=== PATIENT | female | born 2000 | race Caucasian/White ===

== ENCOUNTER → 2023-10-06 12:21 | Outpatient (CLI) | payer OTHER, SELFPAY ==
[2023-10-06 13:40] LABS: HCG Quantitative /Beta subunit 1824.1 mIU/mL
== END ==
PROVIDERS: PCP Registered Nurse Diabetes Educator; Referring Provider Physician Assistant; Visit Provider Physician Assistant
DX: Z34.90 Encounter for supervision of normal pregnancy, unspecified, unspecified trimester (principal)
CPT/HCPCS: 84702

== ENCOUNTER → 2023-11-02 11:16 | Outpatient (CLI) | payer OTHER, SELFPAY ==
[2023-11-02 14:50] LABS: Urine N gonorrhoeae NOT DETECTED
[2023-11-02 16:08] LABS: Urine Chlamydia NOT DETECTED
== END ==
PROVIDERS: PCP Registered Nurse Diabetes Educator; Visit Provider Obstetrics & Gynecology
DX: Z11.3 Encounter for screening for infections with a predominantly sexual mode of transmission (principal); Z34.01 Encounter for supervision of normal first pregnancy, first trimester; Z3A.08 8 weeks gestation of pregnancy
CPT/HCPCS: 87491; 87591

== ENCOUNTER → 2023-11-18 15:44 | Outpatient (CLI) | payer OTHER, SELFPAY ==
[2023-11-18 16:29] LABS: Add Manual Diff / Slide Review NO; Basophils Absolute Auto 100 /uL (0-100); Basophils Percent Auto 0.8 % (0-2); Eosinophils Absolute Auto 200 /uL (0-450); Hematocrit 38.2 % (36-46); Hemoglobin 13.4 g/dL (12.0-16.0); Lymphocytes Absolute Auto 1800 /uL (1100-4500); Lymphocytes Percent Auto 20.7 % (25-40); Mean Corpuscular Hemoglobin 30.6 PG (26-34); Mean Corpuscular Volume 87.4 fL (80-100); Monocytes Absolute Auto 300 /uL (0-900); Monocytes Percent Auto 3.7 % (3-14); Neutrophils Absolute Auto 6200 /uL (1500-7000); Neutrophils Percent Auto 72.8 % (50-75); Platelet Count 232 X10^3/uL (150-400); Red Blood Cell Count 4.37 X10^6/uL (4.0-5.2); Red Cell Distribution Width 13.7 % (11.6-14.8); White Blood Cell Count 8.5 X10^3/uL (4.5-11.0)
[2023-11-18 17:08] LABS: Natera Collection Specimen Collected
[2023-11-18 19:40] LABS: Hepatitis B Surface Antigen NEGATIVE s/c (NEGATIVE); Rubella Antibody IgG 96.2 IU/mL (>15)
[2023-11-18 19:55] LABS: HIV 1 & 2 Ab/Ag 4th Gen Combo NEGATIVE (NEGATIVE); Hep C Virus Ab w/Reflex Quant NEGATIVE s/c (NEGATIVE)
[2023-11-22 07:22] LABS: RPR Screen Non Reactive (Non Reactive); Varicella IgG Antibody 516 index (Immune >165)
== END ==
PROVIDERS: PCP Registered Nurse Diabetes Educator; Referring Provider Obstetrics & Gynecology; Visit Provider Obstetrics & Gynecology
DX: Z34.01 Encounter for supervision of normal first pregnancy, first trimester (principal); Z3A.10 10 weeks gestation of pregnancy
CPT/HCPCS: 36415; 80055; 86787; 86803; 86850; 86900; 86901; 87086; 87389

== ENCOUNTER → 2023-12-28 13:37 | Outpatient (CLI) | payer OTHER, SELFPAY ==
[2024-01-02 11:11] LABS: Gest Age on Col Date 16.7 weeks (.); Insulin Dep Diabetes No (.); OSBR Risk 1IN 10000 (.); Results Report (.); Test Results *Screen Negative* (.)
== END ==
PROVIDERS: PCP Registered Nurse Diabetes Educator; Referring Provider Specialist; Visit Provider Specialist
DX: Z34.02 Encounter for supervision of normal first pregnancy, second trimester (principal); Z3A.16 16 weeks gestation of pregnancy
CPT/HCPCS: 36415; 82105

== ENCOUNTER → 2024-01-18 14:43 | Outpatient (CLI) | payer OTHER, SELFPAY ==
--- NOTE | 2024-01-18 14:43 | DI.US.S_ITS ---
PROCEDURE: US OB >= 14 WEEKS FETUS INDICATIONS: 20 week anatomy scan OUTSIDE/PRIOR DATING DATA: Last menstrual period (LMP): 09/02/2023. LMP-based estimated date of delivery (DAMIAN): 06/08/2024. First dating scan (date and location): 11/02/2023. Estimated date of delivery (DAMIAN) from first dating scan: 06/09/2024. TECHNIQUE: Real-time scanning was performed of the fetus, with image documentation and biometric measurements. COMPARISON: 11/30/2023 FINDINGS: General: A single living intrauterine gestation is present. Presentation: Vertex Placenta: Placental position is posterior , without previa. Amniotic fluid index: 18.6 cm, normal range is 5-24 cm. Single deepest vertical pocket is 5.1 cm. heart rate: 162 beats per minute. Maternal cervical canal: 4.1 cm long. Normal lower limit is 2.5 cm. biometrics: Biparietal diameter: 4.6 centimeters, 20 weeks Head circumference: 17.1 centimeters, 19 weeks and 5 days Abdominal circumference: 14.8 centimeters, 20 weeks Femur length: 3.4 centimeters, 20 weeks and 3 days Clinically estimated gestational age: 19 weeks and 5 days Composite gestational age from present scan: 20 weeks Estimated weight and percentile: 338 grams, 73 percent Anatomic survey: Neuro: Ventricles are non-dilated at less than 10 mm. Cisterna magna is normal at 3-11 mm. Cerebellum is normal in size and morphology. Nuchal skin fold: Normal at less than 6 mm between 14-21 weeks gestational age. Face: Facial profile was not well seen. Nose lips within normal limits Spine: No evidence for spina bifida. Heart: 4-chambered heart is present, with normal ventricular outflow tracts. Diaphragm: Diaphragm is intact. Stomach: Left-sided stomach is present. Kidneys: No hydronephrosis. Normal is less than 5 mm in 2nd trimester, less than 7 mm in 3rd trimester. Cord: 3-vessel cord has orthotopic insertion. Bladder: Normal in size. Extremities: All 4 extremities identified. IMPRESSION: Living intrauterine gestation at 19 weeks and 5 days. Biometry is concordant at the 73rd percentile. No significant abnormalities on routine anatomic survey. However, profile was not well seen. Consider follow-up imaging. Normal JOHN. Dictated by: Yogi Molina M.D. on 01/19/2024 at 10:36 Approved by: Yogi Molina M.D. on 01/19/2024 at 10:40
== END ==
PROVIDERS: PCP Registered Nurse Diabetes Educator; Referring Provider Specialist; Visit Provider Specialist
DX: Z34.02 Encounter for supervision of normal first pregnancy, second trimester (principal); Z3A.19 19 weeks gestation of pregnancy
CPT/HCPCS: 76811

== ENCOUNTER → 2024-02-22 15:06 | Outpatient (CLI) | payer OTHER, SELFPAY ==
[2024-02-22 17:27] LABS: Hematocrit 35.5 % (36-46); Hemoglobin 12.4 g/dL (12.0-16.0)
[2024-02-22 18:13] LABS: GTT (PREG) 1 Hour PP 50gm Dose 131 mg/dL (76-139)
== END ==
PROVIDERS: PCP Registered Nurse Diabetes Educator; Referring Provider Obstetrics & Gynecology; Visit Provider Obstetrics & Gynecology
DX: Z34.02 Encounter for supervision of normal first pregnancy, second trimester (principal); Z3A.26 26 weeks gestation of pregnancy
CPT/HCPCS: 36415; 82950; 85014; 85018

== ENCOUNTER → 2024-04-20 14:13 | Outpatient (CLI) | payer OTHER, SELFPAY ==
--- NOTE | 2024-04-20 14:14 | DI.US.S_ITS ---
PROCEDURE: US OB FOLLOW UP INDICATIONS: GROWTH,PROFILE, FOLLOW UP ANATOMY OUTSIDE/PRIOR DATING DATA: Last menstrual period (LMP): 09/02/2023. LMP-based estimated date of delivery (DAMIAN): 06/08/2024. First dating scan (date and location): 11/02/2023. Estimated date of delivery (DAMIAN) from first dating scan: 06/09/2024. The calculations are made using the working DAMIAN of 06/08/2024. TECHNIQUE: Real-time scanning was performed of the fetus, with image documentation and biometric measurements. Endovaginal scanning: No COMPARISON: None. FINDINGS: General: A single living intrauterine gestation is present. Presentation: Vertex. Placenta: Placental position is posterior , without previa. Amniotic fluid index: 21.7 cm, normal range is 5-24 cm. Single deepest vertical pocket is 6.4 cm. heart rate: 127 beats per minute. Maternal cervical canal: 3.1 cm long. Normal lower limit is 2.5 cm. biometrics: Biparietal diameter: 8.2 cm, 32 week 6 day Head circumference: 29.2 cm, 32 week 2 day Abdominal circumference: 30.4 cm, 34 week 2 day Femur length: 6.6 cm, 34 week 1 day Clinically estimated gestational age: 33 week 0 day Composite gestational age from present scan: 33 week 3 day Estimated weight and percentile: 2302 g, 69 percentile Nonvisualized facial profile. IMPRESSION: Single live intrauterine consistent with a 33 week 3 day gestation Nonvisualized facial profile. Attention on follow-up Approved by: Rob Llody M.D. on 04/20/2024 at 16:25
== END ==
PROVIDERS: PCP Registered Nurse Diabetes Educator; Referring Provider Advanced Practice Midwife; Visit Provider Advanced Practice Midwife
DX: Z34.03 Encounter for supervision of normal first pregnancy, third trimester (principal); Z86.39 Personal history of other endocrine, nutritional and metabolic disease; Z3A.33 33 weeks gestation of pregnancy
CPT/HCPCS: 76816

== ENCOUNTER 2024-05-12 20:02 | Inpatient (IN) | payer OTHER, SELFPAY ==
[2024-05-12 20:15] VITALS: BP 131/81
--- NOTE | 2024-05-12 20:38 | PM.OBHP.1 ---
OB HPI Date/Time Date of admission: 05/12/24 Date Patient Seen: 05/12/24 Time Patient Seen: 20:38 History of Present Condition Chief complaint: labor : 1 Para: 0 Estimated Date of Delivery: 06/08/24 Estimated Gestational Age (weeks): 36w1d Narrative: Morena Correia is a 24 year old female at 36w1d by certain LMP and confirmed by 8 week ultrasound. Morena started her care with Dr. Ferreira/Sheryl and transferred to [facility] to complete her at 31 weeks. 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 Up to today, her course has been uncomplicated. Morena came into clinic today for her 36 week appointment and mentioned that after intercourse this morning, she thought she may be leaking clear fluid starting between 9:30 and 10am today. During her visit, she felt a large gush of fluid which was investigated by CN and found to in fact be rupture of membranes. After reactive NST, Morena and her Reece decided to return home to pack up for the hospital and charge nurse requested they return at 8pm today due to unit staffing r/to emergency. Upon arriving to the unit, Morena mentioned that she has been having lower back and abdominal pain which, when asked, remind her of menstrual cramps. She continues to feel good movement and has not had any vaginal bleeding. She is feeling anxious as this is not what she expected for her labor. Her , Reece, is supportive at her bedside. After discussion of current evidence and the risks/benefits/alternatives for care, Morena and Reece decline steroids for fetus, agree to full STI panel on admission with GBS testing and CBC, and desire expectant management for now. Morena wants to discuss lab results when available in case they change her mind re: current plan of care. Indications Other reason(s) for admission: PPROM History of Present care: good care and initiated at week # (8) Dating criteria: LMP confirmed by 1st trimester US Ultrasounds: normal 1st trimester US and normal mid trimester US Abnormal ultrasound findings: Repeat martha US at 33 weeks due to keppra use Obstetrical complications: other (PPROM) Medical complications: neurological (seizure disorder since childhood) Preadmission Labs Blood type: A (+) positive -: Antibody screen: negative, GBS status: unknown (PCR swab obtained on admission, results pending), HBsAG: negative, HIV: negative, HSV 1: negative, HSV 2: negative and RPR/VDLR: negative -: Chlamydia screen: not detected and Gonorrhea screen: not detected -: Rubella: immune and Varicella: immune HCT: 35.5 HCAB: negative PAP: Normal Integrated screen: MsAFP negative Cell-free DNA: Negative, XX Urine: negative at 11w 1 hr GTT: 131 Prior (ies) History: none Evaluation Evaluation Baseline heart rate: 155 Variability: Moderate (11-25) monitor accelerations: Present Monitor Decelerations: Absent Contraction Frequency (minutes): 0 Status: Category l Comments: Cervical exam deferred due to PPROM [facility] Medical History Family history of thyroid cancer Surgical History Anesthesia Brain tumor, glioma (~2011) Family History (Updated 10/10/23 @ 13:38 by Lora Puente RN) Mother Mental health problem Substance abuse Family estrangement Brother ADHD Grandfather Cancer Grandmother Breast cancer Bladder cancer Smoker Father Family estrangement Social History marital status: number of children: 0 household members: spouse lives independently: Yes caregiver/support person: No housing: apartment pets and animals: Yes (large ) education level: college (associate's degree) occupational status: employed (office) current occupational exposures/hazards: No special shorty needs: No travel history: over 6 months ago seatbelt use: always water heater temp set < 120 deg: Yes working smoke detector in home: Yes fire extinguisher in home: Yes carbon monox detector in home: Yes firearms in home: No do you feel safe at home: Yes Smoking Status: Former smoker second hand exposure: No alcohol intake: former (~1-2/week when not ) substance use type: does not use during the past year weight has: remained stable well-balanced diet: about half the time daily servings fruits/ve-1 caffeine: Yes (1 cup coffee in AM) Type(s) of exercise: walking and other (hiking) Meds Home Medications and Allergies Home Medications Medication Instructions Recorded Confirmed Type levetiracetam 500 mg tablet 1,000 mg (2 x 500 mg) PO BID #360 10/06/23 05/12/24 Rx tabs vits 75-iron 28 mg-folic 1 pkg PO DAILY #90 ea 10/06/23 05/12/24 Rx acid 800 mcg-omega-3 oral combo pack (One A Day Women's DHA) folic acid 1 mg tablet 4 mg (4 x 1 mg) PO DAILY #120 tabs 11/02/23 05/12/24 Rx Allergies Allergy/AdvReac Type Severity Reaction Status Date / Time wheat AdvReac Mild Abdominal Verified 05/12/24 22:12 Pain Contrast Dye Allergy Intermediate rash Uncoded 05/12/24 22:12 Review of Systems Review of Systems Narrative: None except as mentioned in HPI OB Exam Vital signs Blood Pressure: 131/81 Pulse Rate: 86 Respiratory Rate: 18 Temperature: 98.3 F Resp Effort & Inspection: normal respiratory effort and able to speak in complete sentences Cardio Rate: regular rate GI Inspection: normal to inspection External Female Exam: Yes normal external appearance Speculum Exam - Vagina: Yes other (deferred) Presentation: vertex Estimated Weight (lbs): 6 Amniotic Fluid: clear Other: PPROM x13 hours; vertex presentation confirmed by bedside ultrasound this morning at clinic Objective Labs 05/12/24 20:58 Assessment and Plan Assessment and Plan Assessment and Plan narrative: A: @36w 1d PPROM 13 hours, clear fluid Afebrile and normal HR Cephalic presentation GBS status pending STI testing pending Rh positive Pre-existing seizure disorder stable on daily keppra Not in labor Cat 1 FHT P: Admit to L&D. Consulted with Dr. Cash and informed of pt situation, continuous monitoring only indicated with augmentation. Plan for q2 hour intermittent monitoring overnight unless contractions become regular/intense. Initiate Ampicillin for GBS prophylaxis; discontinue if GBS comes back negative. Maternal VS per protocol, q 2 hour temps Pt decides against steroids after risks/benefits/alternatives discussed Expectant management per pt decision after risks/benefits/alternatives discussed Reassess at 0930, sooner with signs of infection or patient desire or PRN Time-Based Coding :: [TOTAL MINUTES] spent with patient and on the chart (including review of chart, obtaining history, exam, reviewing outside data, placing orders, documenting exam and treatment plan, and counseling patient) on [DATE].
[2024-05-12 21:11] LABS: Add Manual Diff / Slide Review NO; Basophils Absolute Auto 100 /uL (0-100); Basophils Percent Auto 0.7 % (0-2); Eosinophils Absolute Auto 100 /uL (0-450); Eosinophils Percent Auto 0.6 % (2-4); Hematocrit 40.4 % (36-46); Lymphocytes Absolute Auto 1600 /uL (1100-4500); Lymphocytes Percent Auto 11.9 % (25-40); Mean Corpuscular HGB Conc 34.6 % (30-36); Mean Corpuscular Hemoglobin 31.4 PG (26-34); Mean Corpuscular Volume 90.8 fL (80-100); Monocytes Absolute Auto 600 /uL (0-900); Monocytes Percent Auto 4.7 % (3-14); Neutrophils Absolute Auto 10700 /uL (1500-7000); Neutrophils Percent Auto 82.1 % (50-75); Platelet Count 210 X10^3/uL (150-400); Red Blood Cell Count 4.45 X10^6/uL (4.0-5.2); Red Cell Distribution Width 13.2 % (11.6-14.8)
[2024-05-12] MEDS: AMPICILLIN 2,000 MG in SODIUM CHLORIDE 0.9% 100 ML 200 MG IV (21:53)
[2024-05-12] MEDS: LACTATED RINGERS 1,000 ML 100 ML IV (21:53)
[2024-05-12 22:24] VITALS: BP 131/81; PULSE 86; RESP 18; TEMP 36.8
[2024-05-12 22:38] LABS: Strep Grp B PCR NEG for Grp B Strep
[2024-05-13] MEDS: diphenhydrAMINE 50 MG/ML VIAL IV (03:30)
[2024-05-13 04:45] LABS: HIV 1 & 2 Ab/Ag 4th Gen Combo NEGATIVE (NEGATIVE); Hep C Virus Ab w/Reflex Quant NEGATIVE s/c (NEGATIVE); Hepatitis B Surface Antigen NEGATIVE s/c (NEGATIVE)
--- NOTE | 2024-05-13 10:17 | PM.OBPNLAB ---
Date/Time Date Patient Seen: 05/13/24 Time Patient Seen: 10:17 Pain Control Pain control: tolerating well Comments: Morena did not sleep much over night due to contractions and anxiety about her labor. At some point during the night she used hydrotherapy for a while and found this helpful. The Benadryl did not help her sleep, it made her feel odd and shaky. She did rest for a few hours starting at 5am. Nurse encouraged Morena to start pumping and walking to encourage contractions to be come stronger and more regular. Morena did one 20min round of pumping around 9am; she had some more intense, irregular contractions with this. VS: T: 98F HR: 112 RR: 18 BP: 122/83 O2: 98% Pelvic Exam Dilation (cm): 3 Effacement (%): 80 station: -2 Amniotic membrane status: Ruptured (x25 hours) Comments: Clear fluid Contractions Contractions on admission: none Monitor mode: External (intermittent) Contraction frequency (min): 10 (5-15 mins) Contraction duration (min): 15 (15-20 sec) Contraction pattern: Irregular Contraction intensity: Moderate (mild to moderate) Status Heart Rate Baseline: 155 Comments: Reassuring by IA overnight. Occasional NSTs performed by nursing staff through the night, all reactive. Most recent tracing has accelerations and moderate variability without decelerations. Assessment and Plan Assessment: other (Early labor) Plan: begin patient augmentation Comments: A: at 36w2d with PPROM x25 hours Afebrile GBS negative Rh positive Early labor RNST Normal blood work panel reviewed Hep B, Hep C, HIV negative P: Discussed risks/benefits/alternatives to continuing with expectant management vs cervical exam and augmentation. Discussed r/b/a to misoprostol vs pitocin for augmentation. Pt requested a cervical exam to help her make her decision. After cervical exam, pt elects to start misoprostol 25mg q2 hours x2. Start pitocin per protocol after 4 hours, PRN. Antibiotics not indicated Maternal VS per protocol, temp q2 hours Continuous monitoring STI panel reviewed, negative with send out labs still pending
[2024-05-13] MEDS: levETIRAcetam 250 MG TABLET 1000 MG PO ×2 (10:20→22:13)
[2024-05-13] MEDS: miSOPROStoL 25 MCG TABLET VAG (10:48)
[2024-05-13] MEDS: FOLIC ACID 1 MG TABLET PO (10:49)
[2024-05-13] MEDS: LACTATED RINGERS 1,000 ML 100 ML IV ×2 (13:35→23:44)
--- NOTE | 2024-05-13 14:17 | PM.AN.REGBLK ---
Regional Block Pre-procedure Procedure: Continuous Lumbar Epidural for L&D PMH/ROS narrative: with PMG of seizure disorder (last seizure 2014) requesting MICHAEL for labor pain. PSH/Anesthesia history narrative: Excision of brain tumor in 2011 with no anesthetic complications. ASA Class: II Labs: Hct 40.4 % (36-46) 05/12/24 20:58 Plt Count 210 X10^3/uL (150-400) 05/12/24 20:58 Medications: Current Medications Generic Name Dose Route Start Last Admin Trade Name Freq PRN Reason Stop Dose Admin Acetaminophen 975 mg 05/12/24 20:31 Acetaminophen 325 Mg Tablet PO Q8H PRN Pain, Mild (1-3) Calcium Carbonate 1,000 mg 05/12/24 20:28 Calcium Carbonate 500 Mg Tab PO Q2HR PRN Dyspepsia Carboprost Tromethamine 250 mcg 05/12/24 20:28 Carboprost 250 Mcg/Ml Ampul IM Q90M PRN Bleeding Diphenhydramine HCl 50 mg 05/13/24 01:00 05/13/24 03:30 Diphenhydramine 50 Mg/Ml Vial IV 50 mg Q4HR PRN Administration Insomnia Folic Acid 1 mg 05/13/24 10:30 05/13/24 10:49 Folic Acid 1 Mg Tablet PO 1 mg DAILY TIM Administration Oxytocin/Lactated Ringer's 30 unit in 500 mls @ 200 mls/hr 05/12/24 20:28 Oxytocin Premix IV CONT PRN Bleeding Protocol Tranexamic Acid 1,000 mg/ 100 mls @ 600 mls/hr 05/12/24 20:28 Sodium Chloride IV NOW PRN Bleeding Oxytocin/Lactated Ringer's 30 unit in 500 mls @ 2 mls/hr 05/12/24 20:30 Oxytocin Premix IV TITRATE TIM Protocol 2 MILLIUNIT/MIN Levetiracetam 1,000 mg 05/13/24 09:00 05/13/24 10:20 Levetiracetam 250 Mg Tablet PO 1,000 mg BID TIM Administration Lidocaine HCl 20 ml 05/12/24 20:28 Lidocaine 1% 20 Ml INJ INTRA-OP PRN Post Delivery Methylergonovine Maleate 0.2 mg 05/12/24 20:28 Methylergonovine 0.2 Mg Tablet PO Q6HR PRN Heavy Bleeding Methylergonovine Maleate 0.2 mg 05/12/24 20:28 Methylergonovine 0.2 Mg/Ml Vial IM NOW PRN Bleeding Mineral Oil 30 ml 05/12/24 20:28 Mineral Oil 30 Ml Udc TOP PRN PRN Version Misoprostol 800 mcg 05/12/24 20:28 Misoprostol 200 Mcg Tablet DE NOW PRN Bleeding Misoprostol 400 mcg 05/12/24 20:28 Misoprostol 200 Mcg Tablet SL NOW PRN Bleeding Misoprostol 50 mcg 05/12/24 20:28 Misoprostol 25 Mcg Tablet SL Q4H PRN cervical ripening Misoprostol 25 mcg 05/13/24 10:30 05/13/24 10:48 Misoprostol 25 Mcg Tablet VAG 25 mcg Q2H TIM Administration Naloxone HCl 0.2 mg 05/12/24 20:28 Naloxone 0.4 Mg/Ml Vial IV Q2MIN PRN Opiate Reversal Ondansetron HCl 4 mg 05/12/24 20:28 Ondansetron 4 Mg/2 Ml Inj IV Q4HR PRN Nausea And Vomiting Oxytocin 10 unit 05/12/24 20:28 Oxytocin 10 Unit/Ml Vial IM NOW PRN Bleeding Allergies: Allergies Allergy/AdvReac Type Severity Reaction Status Date / Time wheat AdvReac Mild Abdominal Verified 05/12/24 22:12 Pain Contrast Dye Allergy Intermediate rash Uncoded 05/12/24 22:12 Procedure Insertion date: 05/13/24 Insertion time: 13:50 Prep/Local: 1% lidocaine (5mL to L2/3 interspace. CHG for skin prep.) Interspace: L2/3 Patient position: sitting Needle: 18 gauge Jolene Loss of resistance with: saline SILVIA at (cm): 7 Catheter placed at SKIN (cm): 12 Catheter in SPACE (cm): 5 Insertion: No CSF, Yes Blood, No Paresthesia with insertion, No Paresthesia with injection and No Test dose reaction Initial Medications TEST DOSE time: 13:53 BOLUS DOSE time: 13:57 BOLUS DOSE (mL): 10 BOLUS DOSE med: 0.25% bupivacaine Infusion INFUSION: 0.125% bupivacaine and with fentanyl 2 mcg/mL Initial rate (mL/hr): 8 Subsequent interventions: 1545: Rounded on patient. Currently satisfied with pain control. Completing cervical exam by CNM at this time. 1740: On pitocin, had an episode of contraction pain alleviated by PCEA bolus. Repositioned and now comfortable, no longer feeling contractions. Post-procedure Anesthesia date START: 05/13/24 Anesthesia time START: 13:41 Anesthesia date END: 05/14/24 Anesthesia time END: 02:46 Post-procedure Anesthesia Assessment: Yes CV function: HR/BP stable, Yes Resp function: RR/sat/airway adequate, Yes Post-op hydration adequate, Yes Pain control adequate, Yes Nausea & vomiting absent, Yes Temperature > 36 C, Yes Mental status appropriate and No Anesthesia complications
--- NOTE | 2024-05-13 16:19 | PM.OBPNLAB ---
Date/Time Date Patient Seen: 05/13/24 Time Patient Seen: 15:30 Pain Control Pain control: epidural Comments: After taking one dose of misoprosol, Morena started having closer and more intense contractions that she was having to stop and breathe through. At this point, she requested an epidural so the nurse called anesthesia. After getting the epidural, Morena was able to get a short nap. The epidural is providing excellent pain relief for her at this time. Nursing staff has been helping Morena change position with peanut ball frequently. After discussing risks/benefits/alternatives to a cervical exam, Morena conents to a cervical exam and starting pitocin. VS: BP: 107/58 HR: 88 bpm Temp: 98.7 F (oral) Pelvic Exam Dilation (cm): 5 Effacement (%): 90 station: -1 Amniotic membrane status: Ruptured (x31 hours) Comments: Clear fluid Contractions Monitor mode: External (intermittent) Contraction frequency (min): 10 (5-15 mins) Contraction pattern: Irregular Contraction intensity: Moderate (mild to moderate) Status status: Category l Heart Rate Baseline: 145 Monitor Accelerations: Present Monitor Decelerations: Absent Monitor Variability: Moderate Assessment and Plan Assessment: induction ongoing Plan: begin patient augmentation Comments: A: @ 36w2d, PPROM x31 hours GBS negative Rhogam not indicated No antibiotics indicated Early labor Afebrile, HR <100 Cat 1 status P: After discussing her cervical exam results Morena agrees to starting pitocin and titrating it up based off of contraction pattern and baby's tolerance. Begin pitocin augmentation per protocol. Monitor maternal VS per protocol, Temp q2 hours Awaiting results from remainder of STI panel Continuous monitoring Reassess in 4 hours, PRN
[2024-05-13] MEDS: OXYTOCIN PREMIX 30 UNIT/500 ML PLAST..BAG IV (16:32)
[2024-05-13] MEDS: ACETAMINOPHEN 325 MG TABLET 975 MG PO (17:31)
--- NOTE | 2024-05-13 21:16 | PM.OBPNLAB ---
Date/Time Date Patient Seen: 05/13/24 Time Patient Seen: 20:35 Pain Control Pain control: epidural Comments: Morena continues to have excellent pain control with epiural. With help from the nurses she changed postions frequently. She had a headache and requested acetaminophen. The nurse also encouraged her to try to sleep to help relieve headache. She rested for about 30 mins and her head did, in fact, feel better. Her abdomen is itching and she continues to have shakes on and off. She continues to leak clear fluid. She is feeling some rectal pressure. When taught how to hand express, she was relieved to see that she does have colostrum. VS: BP: 118/70 HR: 97 T: 98.6 F O2: 95% Pelvic Exam Dilation (cm): 9 Effacement (%): 90 station: 0 Amniotic membrane status: Ruptured (x35 hours) Comments: Anterior lip thicker. Contractions Monitor mode: External Pitocin rate (mU/min): 12 (turned down to 10 at 2107) Contraction frequency (min): 3 (1-5) Contraction duration (min): 1 (30 -60 seconds) Contraction pattern: Regular Contraction intensity: Strong/Firm Status status: Category l Heart Rate Baseline: 155 Monitor Accelerations: Present Monitor Decelerations: Variable Monitor Variability: Moderate Assessment and Plan Assessment: active labor Plan: continuous present management Comments: A: @36w2d PPROM x35 hours Active Labor Rhogam not indicated Antibiotic not indicated Afebrile, HR <100 Cat 1 status P: Continue to titrate pitocin per protocol Monitor VS per protocol, Temp q2 hours Awaiting send out STI results Continuos monitoring Anticipate NSVB Reassess in 2-3 hours, PRN
[2024-05-13] MEDS: FENT 2MCG/ML BUPIV 0.125% EPI 200 MCG/100 ML PLAST..BAG 8 MCG EPIDURAL (21:45)
--- NOTE | 2024-05-13 23:49 | PM.OBPNLAB ---
Date/Time Date Patient Seen: 05/13/24 Time Patient Seen: 11:15 Pain Control Pain control: epidural Comments: The nurse continues to assist Morena with frequent position changes. With help from her , Reece, she hand expressed some colostrum; stored in syringe in fridge. Her headache has come back; she slept for a little while and applied a cold compress to her forehead which provided some relief. She consents to a cervical exam. When asked, she says she would like to try a few practice pushes to see if the anterior lip will reduce. With assistance from SNM, anterior lip reduces but returns after contraction with maternal efforts. Morena agrees to try hands and knees for 30 mins or as long as she can tolerate to reduce anterior lip. VS: BP: 117/64 HR: 96 T: 98.9F O2: 98% Pelvic Exam Dilation (cm): 9 Effacement (%): 90 station: +1 Amniotic membrane status: Ruptured (x37 hours) Comments: Thinner anterior lip Contractions Monitor mode: External Pitocin rate (mU/min): 10 Contraction frequency (min): 1 (30-90sec) Contraction duration (min): 1 (45-70 sec) Contraction pattern: Regular Contraction intensity: Strong/Firm Status status: Category l Heart Rate Baseline: 155 Monitor Accelerations: Present Monitor Decelerations: Absent Monitor Variability: Moderate Assessment and Plan Assessment: active labor Plan: continuous present management Comments: A: 24yo @ 36w2d PPROM x 37 hours Rhogam not indicated Antibiotics not indicated Afebrile, HR <100 Cat 1 status P: Continue titrating pitocin per protocol Continue to await STI send out results Continuous monitoring Anticipate NSVB RT to bedside for delivery Reassess in 30 mins, PRN
[2024-05-14] MEDS: TRANEXAMIC ACID 1,000 MG in SODIUM CHLORIDE 0.9% 100 ML 600 MG IV (03:19)
--- NOTE | 2024-05-14 03:50 | PM.OBPRVD ---
Events: Labor < 37 wks, Premature Rupture Membrane and Prolonged Rupture Membrane Labor & Delivery Delivery date: 05/14/24 Delivery Time: 02:46 Intrapartal Events: Extended Tachycardia Cervical ripening method: per misoprostal protocol Induction method: per pitocin protocol Delivery monitor: external FHT Route of delivery: Indication for instrumentation: nonreassuring FHR tracing L&D Laceration Description: Periurethral - 1st Degree and Vaginal - 2nd Degree Delivery repair: chromic (3-0) Quantitative Blood Loss: 300 Anesthesia Type: Epidural Narrative: Morena had PPROM at 36w1d and opted for expectant management for 24 hours. She then began laboring with a small dose of misoprostol and continued with pitocin augmentation after that. Throughout her admission, she was afebrile, had a normal heart rate, and her admission WBC was 13. Morena was found to be GBS negative, so her antibiotics were stopped after the loading dose of ampicillin. Labor progressed well to 9 cm and anterior lip did not resolve with position changes so it was reduced when pushing was initiated. Morena felt the spontaneous urge to push at 0030, when anterior lip was present. Morena pushed for an average 2nd stage complicated by tachycardia starting before 0100. Repetitive late decelerations started at approximately 0200 with moderate variability: Category 2 throughout 2nd stage with OB notified when vacuum applied at 0235. Vacuum supported delivery of head with 2 pulls and 2 pop offs, but baby girl delivered direct ROT with maternal efforts at 0246 , shoulders delivered easily without nuchal cord. Baby was placed on maternal abdomen for drying and stimulation. Apgars 6/8/8. They remained skin to skin while cord was cut and then baby was taken to warmer at 2 min of life for evaluation of oxygenation and heartrate. RT was present at delivery, ready to receive . Placenta delivered spontaneously with maternal efforts and appeared to be intact. Pitocin initiated for AMTSL IV and then TXA was given due to oozing yet firm uterus. Cord blood collected for blood typing and cord segment collected in case it was needed. Perineum inspected and 2nd degree perineal and midline vaginal lacerations repaired with 3-0 chromic. Shallow periurethral lacerations noted on right. Blood loss measured and estimated loss is 300 mL. Peds arrived to support baby, who did not require resuscitation beyond drying, stimulation, bulb suction and observation, and she was returned to do skin to skin with Morena at 42 min of life. Mom and baby left stable and is being initiated. Morena and Roberot are thrilled to meet their baby girlRuthie. Charlotte FRY, CNM, IBCLC [place] [facility] 1: gender: Female Presentation: vertex Position: Right Occiput Transverse Placenta delivery description: Spontaneous Cord Vessel Description: 3 Vessels score (1 min): 6 score (5 min): 8 score (10 min): 8 weight: 3.106 kg Plan for aftercare: Routine care
[2024-05-14] MEDS: WITCH HAZEL/GLYCERIN PADS 1 EACH TOP (04:16)
[2024-05-14] MEDS: DERMOPLAST SPRAY 20% 60 ML 1 SPRAY TOP (04:16)
[2024-05-14] MEDS: KETOROLAC 30 MG/ML VIAL IV (04:17)
[2024-05-14] MEDS: PRENATAL VIT,CALC/IRON/FOLIC 1 TABLET 1 TAB PO (09:03)
[2024-05-14] MEDS: levETIRAcetam 250 MG TABLET 1000 MG PO ×2 (09:03→21:01)
[2024-05-14] MEDS: FOLIC ACID 1 MG TABLET 4 MG PO ×2 (09:13→09:15)
[2024-05-14] MEDS: IBUPROFEN 600 MG TABLET PO (18:42)
[2024-05-14] MEDS: ACETAMINOPHEN 325 MG TABLET 650 MG PO (18:42)
[2024-05-15 01:36] LABS: RPR Screen Non Reactive (Non Reactive)
[2024-05-15] MEDS: IBUPROFEN 600 MG TABLET PO (02:03)
--- NOTE | 2024-05-15 09:13 | P.DS_ITS ---
Discharge Providers Provider Date of admission: 05/12/24 20:02 Discharge Date: 05/15/24 Primary care physician: LISANDRA Wang Consults: 05/12/24 20:29 Consult to Anesthesiology Urgent Comment: Consulting Provider: Anesthesiologist Reason for consultation: Epidural Has provider been notified: Yes 05/15/24 03:47 Consult to Inspector Raw Quartz Routine Comment: Discharge provider: Charlotte Escobar CNM, ARNP Summary Hospital Course Date Patient Seen: 05/15/24 Time Patient Seen: 09:13 Diagnoses: O80 Hospital Course: Pt admitted due to PPROM, expectant management initially, then IOL followed by Vacuum assisted delivery. Perineum repaired. . Normal care. Peripartum Data Delivery Method: Natural Vaginal Laceration Description: Periurethral - 1st Degree and Perineal - 2nd Degree Procedures: Repair of perineum and vagina with 3-0 chromic [place] 1: Gender: Female Disposition of : home Discharge Diagnosis (1) 36 weeks gestation of : Status: Acute (2) premature rupture of membranes (PPROM) delivered, current hospitalization: Status: Acute (3) Encounter for supervision of normal first , unspecified trimester: Status: Acute (4) Vacuum extraction, delivered, current hospitalization: Status: Acute (5) Second degree perineal laceration during delivery: Status: Acute Status at Discharge Cognitive/behavioral status at discharge: oriented and calm Functional status at discharge: independent ambulation Overall status at discharge: patient is progressing back to baseline Time Spent with Patient Time attestation: Total time spent providing and/or coordinating discharge services: Time spent: Less than 30 minutes Specific discharge activities: discharge teaching Objective Labs 05/12/24 20:58 Labs: Laboratory Results - last 24 hr 05/12/24 21:38 RPR w/Rflx to Titer Non reactive Exam Other: Fundus firm at U, midline. Lochia scant Perineum intact with minimal edema Discharge Plan Discharge Plan Patient Disposition: Home Discharge orders & Medications Prescriptions: Continued One A Day Women's DHA 28 mg iron- 800 mcg combo pack 1 pkg PO DAILY Qty: 90 3RF Rx Instructions: Take one tablet once daily levetiracetam 500 mg tablet 1,000 mg PO BID Qty: 360 1RF Rx Instructions: Take 1 tab in a.m. and two tabs in p.m. (decreased from 2 tabs bid) folic acid 1 mg tablet 4 mg PO DAILY Qty: 120 6RF Rx Instructions: Patient taking 4mg/day (4 x 1mg tabs) Follow up/Referrals: Charlotte Escobar CNM, ARNP [[employer]] - 2 Weeks (2 and 6 week follow ups as scheduled with [facility]. ) Harvinder Levin ARNP [Primary Care Provider] - Diet/Activity/Treatments Diet: Diet as Tolerated and Regular Diet comment: Increase fiber and fluid to support good stool Activity: low allan x 2 weeks Cold/Heat Therapy: as needed, cold recommended for breast pain & engorgement Skin/Wound/Dressing Care Skin care: usual care Report to your healthcare provider any signs of infection, such as:: chills, fever, unusual drainage and unusual redness Visit Report/Discharge Packet Stand Alone Forms: Patient Portal/API, Stroke Signs & Symptoms Discharge Data Primary Care Provider: Harvinder Levin
[2024-05-15] MEDS: WITCH HAZEL/GLYCERIN PADS 1 EACH TOP (10:15)
[2024-05-15] MEDS: PRENATAL VIT,CALC/IRON/FOLIC 1 TABLET 1 TAB PO (10:15)
[2024-05-15] MEDS: FOLIC ACID 1 MG TABLET 4 MG PO (10:15)
[2024-05-15] MEDS: levETIRAcetam 250 MG TABLET 1000 MG PO (10:19)
[2024-05-15 15:23] VITALS: BP 119/74; PULSE 83; RESP 16; TEMP 36.9
[2024-05-18 09:17] LABS: Chlamydia trachomatis Negative (Negative); Mycoplasma genitalium Negative (Negative); Neisseria gonorrhoeae Negative (Negative)
== END 2024-05-15 15:13 | disposition home or self-care (01) | DRG 807 ==
PROVIDERS: Admitting Provider Advanced Practice Midwife; PCP Registered Nurse Diabetes Educator; Referring Provider Advanced Practice Midwife; Visit Provider Advanced Practice Midwife
DX: O42.113 Preterm premature rupture of membranes, onset of labor more than 24 hours following rupture, third trimester (principal); Z37.0 Single live birth; O76 Abnormality in fetal heart rate and rhythm complicating labor and delivery; O70.1 Second degree perineal laceration during delivery; Z3A.36 36 weeks gestation of pregnancy
CPT/HCPCS: 36415; 59050; 59200; 76815; 85025; 86592; 86803; 86850; 86900; 86901; 87340; 87389; 87491; 87563; 87591; 87653; G0379; J0290; J1200; J1885; J2590

== ENCOUNTER 2024-09-10 18:04 | Emergency (ER) | payer OTHER, SELFPAY ==
[2024-09-10 18:09] VITALS: BP 130/60; PULSE 88; RESP 18; TEMP 36.2; O2SAT 95; BMI 30.1
--- NOTE | 2024-09-10 18:14 | DI.RAD.S_ITS ---
PROCEDURE: XR KNEE LT 3V INDICATIONS: trip and fall yesterday, R ankle and L knee pain TECHNIQUE: 3 views of the knee were acquired. COMPARISON: None. FINDINGS: Bones: No fractures or dislocations. No significant patellar subluxation. No suspicious bony lesions. Soft tissues: No joint effusion. No suspicious soft tissue calcifications. IMPRESSION: No acute left knee fracture or dislocation. No significant joint effusion. Dictated by: Indio Rajput M.D. on 09/10/2024 at 18:44 Approved by: Indio Rajput M.D. on 09/10/2024 at 18:44
--- NOTE | 2024-09-10 18:15 | DI.RAD.S_ITS ---
PROCEDURE: XR ANKLE RT MIN 3V INDICATIONS: trip and fall injury to R ankle, L knee TECHNIQUE: 3 views of the ankle were acquired. COMPARISON: None. FINDINGS: Bones: No fractures or dislocations. Ankle mortise is normally aligned. No suspicious bony lesions. Soft tissues: No tibiotalar joint effusion. Achilles tendon appears normal. IMPRESSION: No acute ankle fracture or dislocation. Dictated by: Indio Rajput M.D. on 09/10/2024 at 18:43 Approved by: Indio Rajput M.D. on 09/10/2024 at 18:43
--- NOTE | 2024-09-10 21:09 | ED_ITS ---
HPI - Extremity Injury (Lower) General Chief Complaint: Extremity Injury, Lower Stated Complaint: Left knee pain after fall yesterday Time Seen by Provider: 09/10/24 21:09 Source: patient Mode of arrival: Ambulatory History of Present Illness HPI Narrative: 24-year-old female history of seizures on Keppra presents to the emergency department from home for evaluation of left knee pain. She states that she had a mechanical trip and fall yesterday states that she fell onto her left knee. States initially she was fine but today felt more increased pain therefore decided come into the ED for further evaluation treatment she denies any head strike denies any other injuries at this time. Not on any blood thinners. Related Data Previous Rx's Medication Instructions Recorded levetiracetam 500 mg tablet 1,000 mg (2 x 500 mg) PO BID #360 10/06/23 tabs vits 75-iron 28 mg-folic 1 pkg PO DAILY #90 ea 10/06/23 acid 800 mcg-omega-3 oral combo pack (One A Day Women's DHA) folic acid 1 mg tablet 1 mg PO DAILY #90 tabs 05/28/24 Allergies Allergy/AdvReac Type Severity Reaction Status Date / Time wheat AdvReac Mild Abdominal Verified 05/12/24 22:12 Pain Contrast Dye Allergy Intermediate rash Uncoded 05/12/24 22:12 Review of Systems Review of Systems Narrative: General: Denies fever, chills, weight loss HEENT: Denies headache, eye drainage, eye irritation, head trauma, sore throat, voice change Cardiovascular: Denies any chest pain, palpitations, tachycardia Respiratory: Denies any shortness of breath, cough, wheeze, stridor GI/: Denies any abdominal pain, nausea, vomiting, diarrhea, bright red blood per rectum, melanotic stools, urinary frequency, urinary retention, dysuria, hematuria MSK: Positive left knee pain Skin: Denies any rashes, lesions, discoloration Neuro: Denies any headache, lightheadedness, dizziness, fainting, weakness Psych: Denies SI/HI Patient History Medical History Family history of thyroid cancer Surgical History Anesthesia Brain tumor, glioma (~2011) Family History (Updated 10/10/23 @ 13:38 by Lora Puente RN) Mother Mental health problem Substance abuse Family estrangement Brother ADHD Grandfather Cancer Grandmother Breast cancer Bladder cancer Smoker Father Family estrangement Social History marital status: number of children: 0 household members: spouse lives independently: Yes caregiver/support person: No housing: apartment pets and animals: Yes (large ) education level: college (associate's degree) occupational status: employed (office) current occupational exposures/hazards: No special shorty needs: No travel history: over 6 months ago seatbelt use: always water heater temp set < 120 deg: Yes working smoke detector in home: Yes fire extinguisher in home: Yes carbon monox detector in home: Yes firearms in home: No do you feel safe at home: Yes Smoking Status: Never smoker second hand exposure: No alcohol intake: former (~1-2/week when not ) substance use type: does not use during the past year weight has: remained stable well-balanced diet: about half the time daily servings fruits/ve-1 caffeine: Yes (1 cup coffee in AM) Type(s) of exercise: walking and other (hiking) Smoking Status: Never smoker Exam Narrative Exam Narrative: General: Cooperative, well-developed, not in acute distress HEENT: Normocephalic, atraumatic, PERRLA, normal sclera, eyelids normal Neck: Active full range of motion, atraumatic Chest: Normal to inspection, negative crepitus, no overlying erythema ecchymosis Respiratory: Normal respiratory effort, not in acute respiratory distress, clear to auscultation bilaterally negative cough, wheeze, tachypnea, rhonchi, rales Cardiology: Regular rate rhythm negative gallop, murmur, rubs GI/: No tenderness to palpation, soft, non rigid, normal to inspection, exam deferred MSK: Minor tenderness to palpation of the left knee however neurovascularly intact bilateral upper and lower extremities, there is no tenderness to palpation of the right ankle, patient is stable to stand bear weight ambulate unassisted here in the emergency department. Skin: No rashes or lesions noted Neuro: Alert awake oriented x3, moves all 4 extremities spontaneously, cranial nerves intact, able to answer all questions appropriately follows commands appropriately Psych: Cooperative, negative suicidal or homicidal ideations Initial Vital Signs Initial Vital Signs: Vital Signs Temperature 97.2 F L 09/10/24 18:09 Pulse Rate 88 09/10/24 18:09 Respiratory Rate 18 09/10/24 18:09 Blood Pressure 130/60 09/10/24 18:09 Pulse Oximetry 95 09/10/24 18:09 Oxygen Delivery Method Room Air 09/10/24 18:09 Course Orders Ordered: ED Orders 09/10/24 18:14 XR knee LT 3V Stat 09/10/24 18:15 XR ankle RT min 3V Stat Vital Signs Vital signs: Vital Signs - 8 hr 09/10/24 18:09 Temperature 97.2 F L Pulse Rate 88 Respiratory Rate 18 Blood Pressure 130/60 Pulse Oximetry 95 Oxygen Delivery Method Room Air MDM - Extremity Injury (Lower) Differential Diagnosis Differential diagnosis: Likely ankle sprain and strain and other (Knee fracture, knee sprain) Imaging Data Extremity x-ray #1: Radiologist's Impression: [address] [id number] XRay Report Signed Patient: Morena Correia MR#: [id number] : 2000 Acct:[id number] Age/Sex: 24 / F Date of Service: 09/10/24 Loc: ED Accession Number: [id number] Procedure: XR knee LT 3V Ordering Provider: Abdullahi Waterman D.O. PROCEDURE: XR KNEE LT 3V INDICATIONS: trip and fall yesterday, R ankle and L knee pain TECHNIQUE: 3 views of the knee were acquired. COMPARISON: None. FINDINGS: Bones: No fractures or dislocations. No significant patellar subluxation. No suspicious bony lesions. Soft tissues: No joint effusion. No suspicious soft tissue calcifications. IMPRESSION: No acute left knee fracture or dislocation. No significant joint effusion. Extremity x-ray #2: Radiologist's Impression: [address] [address] XRay Report Signed Patient: Morena Correia MR#: [id number] : 2000 Acct:[id number] Age/Sex: 24 / F Date of Service: 09/10/24 Loc: ED Accession Number: [id number] Procedure: XR ankle RT min 3V Ordering Provider: Abdullahi Waterman D.O. PROCEDURE: XR ANKLE RT MIN 3V INDICATIONS: trip and fall injury to R ankle, L knee TECHNIQUE: 3 views of the ankle were acquired. COMPARISON: None. FINDINGS: Bones: No fractures or dislocations. Ankle mortise is normally aligned. No suspicious bony lesions. Soft tissues: No tibiotalar joint effusion. Achilles tendon appears normal. IMPRESSION: No acute ankle fracture or dislocation. MDM Narrative Medical decision making narrative: 24-year-old female history of seizure disorder on Keppra presenting for pain to her left knee and right ankle after mechanical trip and fall yesterday. Was able to stand bear weight ambulate immediately after but has had persistent pain therefore decided come into the ED for further evaluation treatment. On exam patient neurovascularly intact x-rays negative for any acute traumatic fractures. Given patient with pain primarily to her left knee were place her in a knee immobilizer instructed to follow up with primary care in outpatient setting she verbalized understanding of this and agrees to being discharged home with outpatient follow up Discharge Plan Departure Patient Disposition: Home Clinical Impression: Acute pain of left knee Instructions: How to Use a Knee Immobilizer Activity Restrictions/Additional Instructions: Please take Motrin or Tylenol for the pain in your left knee, follow up with primary care in outpatient setting Please read the discharge instructions sheet carefully and bring all papers to all doctor follow-up visits, as it may contain information that your doctor may want to see. Disease processes change and evolve, if your symptoms worsen or if you develop any new symptoms that are concerning to you please return for evaluation. Your evaluation today does not show any evidence of any life- threatening/serious illnesses requiring admission to the hospital or surgery. Please follow-up with your doctor for re-evaluation in approximately 1 day. Seek immediate medical attention for any worrisome symptoms. *If you do not have a primary care provider please contact the [facility] Resource line at [phone]. They will ask some questions about your medical history and help get you set up with a doctor in the community. Prescriptions: No Action folic acid 1 mg tablet 1 mg PO DAILY Qty: 90 2RF One A Day Women's DHA 28 mg iron- 800 mcg combo pack 1 pkg PO DAILY Qty: 90 3RF Rx Instructions: Take one tablet once daily levetiracetam 500 mg tablet 1,000 mg PO BID Qty: 360 1RF Rx Instructions: Take 1 tab in a.m. and two tabs in p.m. (decreased from 2 tabs bid) Referrals: Harvinder Levin ARNP [Primary Care Provider] - Stand Alone Forms: Patient Portal/API/Survey
== END 2024-09-10 22:25 | disposition home or self-care (01) ==
PROVIDERS: Emergency Provider Student in an Organized Health Care Education/Training Program; PCP Registered Nurse Diabetes Educator
DX: M25.562 Pain in left knee (principal); W01.0XXA Fall on same level from slipping, tripping and stumbling without subsequent striking against object, initial encounter
CPT/HCPCS: 73562; 73610; 99282; 99283